=== PATIENT | female | born 1965 | race Hispanic/Latino ===

== ENCOUNTER 2023-05-15 08:10 | Emergency (ER) | payer OTHER, BC ==
[~2023-05-15] VITALS: Ht 152.4 cm; Wt 63.5 kg
[2023-05-15] MEDS: ACETAMINOPHEN 500 MG TABLET PO ONE (08:53)
[2023-05-15 10:13] VITALS: BP 131/75; PULSE 55; RESP 18; O2SAT 100
== END 2023-05-15 10:48 | disposition home or self-care (01) ==
LOC: EDH 08:10
DX: R51.9 Headache, unspecified (principal); Z98.890 Other specified postprocedural states; V89.2XXA Person injured in unspecified motor-vehicle accident, traffic, initial encounter; Y93.I9 Activity, other involving external motion; Y92.488 Other paved roadways as the place of occurrence of the external cause; Y99.8 Other external cause status
CPT/HCPCS: 70450